=== PATIENT | female | born 1940 | race Caucasian/White ===

== ENCOUNTER 2024-07-18 09:28 | Outpatient (AMB) | payer MEDICARE, SELFPAY ==
--- NOTE | 2024-07-18 09:33 | A.SPINEOV_ITS ---
Intake Visit Reasons: Back pain Intake Note: Mrs. Bhakta is here today c/o neck pain. 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 She is a very nice 84 year old female with history of right C3-4 laminectomy and debulking of what was described as a meningioma by Dr. Munoz in 2021. Postoperatively, the patient did have improvement in the numbness of her hands and feet that was her original presentation, however subsequent imaging showed a significant amount of tumor remaining and Dr. Munoz wanted to go back in and do a 2nd surgery. The patient was a little skeptical of the fact that there was need for 2nd surgery and went to have a 2nd opinion in [place] with Dr. Kris Howell. His opinion of the matter was that if she was not symptomatic and not losing function, that this could just be followed radiographically. There was also discussion about radiation, but he fell as though if he had to operate again, going through the radiation field in the tumor would make things much more difficult so they decided against this. The patient's insurance [facility] [employer] decided that they were not going to approve her visits out there anymore so she is looking for another local surgeon. Her main symptom currently is neck pain in the back of her neck when she puts her head down. It is discomforting throughout the day. She may have a little bit of tingling in her hands but nothing similar to what it was before the surgery. She has no ataxia, incontinence or issues that suggest myelopathy. PMH: She is history of atrial fibrillation, she is on Coumadin, history of hypertension, hypothyroidism, arthritis, hysterectomy, thyroidectomy, carpal tunnel release, cholecystectomy Social hx: She has not smoke, drink use any recreational drugs Medications: Levothyroxine, amlodipine, atorvastatin and Coumadin Allergies: None Physical exam: She is awake alert oriented, she is able stand up out of a chair independently walk down the hallways with no signs of instability. She may have some mild hand weakness but other than that her strength is grossly full. No obvious deficits. Reflexes are diminished throughout the upper and lower extremities, no Lin's sign, no clonus. She has a well-healed incision on the back of her neck and there is signs of atrophy and muscle wasting along the midline of the incision. 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 There is no cord signal change seen. There is also a smaller enhancing component also extending down to the C4-5 foramen. This imaging is compared to September 2023 and according to the radiologist is stable. Impression: 84-year-old female presents to the office today for establishing care in the setting of a known meningioma in the C3-4 area on the right which was partially debulked about 2 years ago. The patient was told by the original surgeon Dr. Munoz that the tumor had another component to it that he would need to go back in and fix. That was discovered on postoperative imaging. The patient had been followed in [place] with , and was just given radiographic follow-ups. Her tumor appears to be stable and the symptoms that she originally had before surgery are significantly improved. What she has now is neck pain. Dr. Chavez and I reviewed the patient's clinical presentation, imaging together. She still does have a large residual portion of the tumor in the central canal displacing the spinal cord to the left. There is also extension into the right C3-4 neural foramen and maybe even some degree of enhancement down in the right C4-5 neural foramen. We would like to obtain her original imaging from [facility] to compare to the 1 seen here postoperatively. We suspect that the large tumor that we see residual in the spinal canal was also part of the original tumor but for whatever reason was just not removed at the time of surgery. As long as that is the case, we can follow this radiographic as well with imaging every 6 months. If there has been some kind of significant growth since the original imaging, we could consider reoperation but would strictly speaking stick to debulking the part near the spinal cord. Dr. Chavez would not consider surgery however, unless the patient became symptomatic. We will get back to her once we have a chance to compare the original films to the ones from April of this year. Thank you for allowing us to care for your patient. The total time spent with this visit with this patient was 45 minutes reviewing history, physical exam, cervical MRI imaging review, and implementation of treatment plan or further diagnostic testing Kip Chavez MD,PhD [facility] Coding Level of Care Code New Pt Level 4 (97842) Diagnoses Cervical spine tumor D49.2
== END 2024-07-18 10:45 | disposition home or self-care (01) ==
PROVIDERS: PCP Internal Medicine; Referring Provider Internal Medicine; Visit Provider Physician Assistant
DX: D49.2 Neoplasm of unspecified behavior of bone, soft tissue, and skin (principal)
CPT/HCPCS: 99204

== ENCOUNTER → 2024-07-18 09:28 | Outpatient (BNVA) | payer MEDICARE, SELFPAY | PROVIDERS: PCP Internal Medicine; Visit Provider Physician Assistant | DX: D49.2 Neoplasm of unspecified behavior of bone, soft tissue, and skin (principal) | CPT/HCPCS: 99202 ==

== ENCOUNTER → 2025-01-27 15:44 | Outpatient (BNV) | payer MEDICARE, SELFPAY | PROVIDERS: PCP Internal Medicine; Visit Provider Radiology Diagnostic Radiology | DX: D32.1 Benign neoplasm of spinal meninges (principal) | CPT/HCPCS: 72156 ==

== ENCOUNTER 2025-01-27 15:45 | Outpatient (REF) | payer MEDICARE, SELFPAY ==
[2025-01-27] MEDS: gadobutroL 7.5 ML VIAL IVPUSH (16:41)
== END 2025-01-27 15:46 | disposition home or self-care (01) ==
LOC: HO.MRI 15:45
PROVIDERS: PCP Internal Medicine; Visit Provider Physician Assistant
DX: D49.2 Neoplasm of unspecified behavior of bone, soft tissue, and skin (principal)
CPT/HCPCS: 72156; A9585